=== PATIENT | female | born 2005 | race Caucasian/White ===

== ENCOUNTER 2023-06-17 16:20 | Emergency (ER) | payer OTHER ==
[~2023-06-17] VITALS: Ht 165.1 cm; Wt 59.1 kg
[2023-06-17 16:21] VITALS: BP 133/89; TEMP 99.5; O2SAT 99
[2023-06-17] MEDS ORDERED: PROP40TA62 (16:31)
[2023-06-17] MEDS ORDERED: LAMI1TAB7 (16:31)
[2023-06-17] MEDS ORDERED: LURA20TA (16:31)
[2023-06-17] MEDS ORDERED: FLUO40CA (16:31)
[2023-06-17] MEDS ORDERED: mirena (16:31)
[2023-06-17] MEDS ORDERED: ADDE10TA (16:31)
== END 2023-06-17 19:15 | disposition home or self-care (01) ==
LOC: M ED 16:20
DX: F43.0 Acute stress reaction (principal); F90.9 Attention-deficit hyperactivity disorder, unspecified type; F17.200 Nicotine dependence, unspecified, uncomplicated; F12.10 Cannabis abuse, uncomplicated; Z79.899 Other long term (current) drug therapy

== ENCOUNTER → 2025-07-22 | Outpatient (REF) | payer OTHER, MEDICAID ==
[~2025-07-22] MED LIST: ADDE10TA; FLUO40CA; LAMI1TAB7; LURA20TA; PROP40TA62; mirena
== END ==
LOC: M LAB REF 17:34
DX: B34.9 Viral infection, unspecified (principal)

== ENCOUNTER → 2025-07-22 | Outpatient (CLI) | payer OTHER, MEDICAID | LOC: M RAD 13:40 | DX: S90.122A Contusion of left lesser toe(s) without damage to nail, initial encounter (principal); Y93.9 Activity, unspecified; Y92.9 Unspecified place or not applicable ==